=== PATIENT | female | born 1980 | race Caucasian/White ===

== ENCOUNTER 2024-12-01 06:30 | Day surgery (SDC) | payer OTHER ==
[~2024-12-01] VITALS: Ht 157.5 cm; Wt 60.8 kg
[2024-12-01] VITALS (17 sets, daily range): BP systolic 91–137; BP diastolic 64–96
[2024-12-01] MEDS ORDERED: ATOR20 PO (06:43)
[2024-12-01] MEDS ORDERED: ASPI81CH PO (06:43)
[2024-12-01] MEDS ORDERED: WARF5 PO (06:44)
[2024-12-01] MEDS ORDERED: Benzocaine Oral Spray 0.5ML UD ONE (06:52)
--- NOTE | 2024-12-01 08:04 | NUR ---
PATIENT ADMITTED TO [facility] THIS AM FOR NICOLE WITH ANESTHESIA. PT NPO SINCE MIDNIGHT LAST NIGHT, ALLERGIES, MEDS, AND HX REVIEWED. DR HOPKINS IN TO SEE PT AT 0705. TIME OUT AT 0725, NICOLE IN AT 0728, NICOLE OUT AT 0740. ANESTHESIA ENDED AT 0751. PT INITIALLY DRWOSY BUT AWAKENS TO VOICE AND FOLLOW COMMANDS. PT FULLY AWAKE NOW AND DENIES COMPLAINTS. PT SBA TO RESTROOM, SHANNON WELL. PT'S AT BEDSIDE. DR KO SPOKE WITH PATIENT PRIOR TO DISCHARGE. 500CC NS GIVEN FOR PROCEDURE. VSS. VERBAL AND WRITTEN DISCHARGE INSTRUCTIONS GIVEN TO PATIENT AND PT'S WITH CLEAR UNDERSTANDING.
--- NOTE | 2024-12-01 08:59 | NUR ---
PATIENT DC HOME IN STABLE CONDITION AT 0900
[2024-12-01] MEDS ORDERED: Propofol 10mg/ml 20 ml Vial (Procedural) IV ONE (09:04)
== END 2024-12-01 09:58 | disposition home or self-care (01) ==
LOC: MHTC 06:30 → ORSCMMR 06:30 → MHTC 06:50 → ORSCMMR 07:30 → MHTC 09:58 → ORSCMMR 09:58 → ORD 10:00 → ORSCMMR 10:00
DX: T82.09XA Other mechanical complication of heart valve prosthesis, initial encounter (principal); Z95.2 Presence of prosthetic heart valve; E78.00 Pure hypercholesterolemia, unspecified; Z88.2 Allergy status to sulfonamides; Z79.82 Long term (current) use of aspirin; Z79.899 Other long term (current) drug therapy
CPT/HCPCS: 93312; 93325; A9270; J2704; J7030

== ENCOUNTER → 2024-12-21 | Outpatient (CLI) | payer OTHER ==
[~2024-12-21] MED LIST: ASPI81CH PO; ATOR20 PO; WARF5 PO
[2024-12-21 15:02] LABS: Stool Occult Bld Immuno 1 Negative (NEGATIVE)
== END | disposition home or self-care (01) ==
LOC: LAB SHORT 08:18 → LAB 08:18
PROVIDERS: Physician Assistant
DX: Z12.11 Encounter for screening for malignant neoplasm of colon (principal)
CPT/HCPCS: G0328